=== PATIENT | male | born 1980 | race Caucasian/White ===

== ENCOUNTER 2017-08-14 18:23 | Emergency (ER) | payer BC ==
[2017-08-14 18:35] VITALS: BMI 30.2
--- NOTE | 2017-08-14 20:36 | PDOC ---
History of Present Illness <Tanner Felton - Last Filed: 08/14/17 21:00> - History of Present Illness Initial Comments: 08/14/17 20:31 Mr. Draper is a 37 yo male with a significant past medical history of Esophagitis and Hiatal hernia who presents to the emergency department complaining of a several week history of chest tightness. He says that he had bronchitis a few weeks ago which he self diagnosed, and that he went to see his doctor on Saturday when he started coughing up brown mucous every morning. He was then put on an antibiotic that he does not know the name of. He became worried today when he experienced acute worsening of his chest tightness and says that he felt like "someone was sitting on his chest." He then called his PCP who advised him to present to the ER. He also reports that he has experienced minimal diarrhea since he began his antibiotic. The patient denies headache and dizziness. Denies fever, chills, nausea, vomit, and constipation. Denies dysuria, frequency, urgency and hematuria. Allergies: NKDA Past surgical history: Denies Social history: Smoked 1 ppd for 16 years, quit 1 year ago PMD - Roe Valenzuela <Mike Ramos - Last Filed: 08/16/17 02:58> - General Chief Complaint: Chest Pain Stated Complaint: CHEST TIGHTNESS Time Seen by Provider: 08/14/17 20:31 Past History <Tanner Felton - Last Filed: 08/14/17 21:00> - Past Medical History Other medical history: denies - Immunization History Immunization Up to Date: Yes - Suicide/Smoking/Psychosocial Hx Smoking History: Former smoker Have you smoked in the past 12 months: No Number of Cigarettes Smoked Daily: 20 If you are a former smoker, when did you quit?: 2016 Information on smoking cessation initiated: Yes 'Breaking Loose' booklet given: 08/14/17 Hx Alcohol Use: No Drug/Substance Use Hx: No Substance Use Type: None <Mike Ramos - Last Filed: 08/16/17 02:58> - Past Medical History Allergies/Adverse Reactions: Allergies Allergy/AdvReac Type Severity Reaction Status Date / Time No Known Allergies Allergy Verified 08/14/17 18:30 Home Medications: Ambulatory Orders Naproxen [Naprosyn -] 500 mg PO BID #14 tablet 12/05/15 Methylprednisolone [Medrol Dose Salazar] 4 mg PO ASDIR #21 tablet 08/14/17 Review of Systems - Review of Systems Comments:: 08/14/17 20:32 GENERAL/CONSTITUTIONAL: No fever or chills. No weakness. HEAD, EYES, EARS, NOSE AND THROAT: No change in vision. No ear pain or discharge. No sore throat. CARDIOVASCULAR: +Acute chest tightness today around 4pm with associated shortness of breath RESPIRATORY: No cough, wheezing, or hemoptysis. GASTROINTESTINAL: +Diarrhea since starting ABX saturday. No nausea, vomiting, or constipation. GENITOURINARY: No dysuria, frequency, or change in urination. MUSCULOSKELETAL: No joint or muscle swelling or pain. No neck or back pain. SKIN: No rash NEUROLOGIC: No headache, vertigo, loss of consciousness, or change in strength/ sensation. ENDOCRINE: No increased thirst. No abnormal weight change HEMATOLOGIC/LYMPHATIC: No anemia, easy bleeding, or history of blood clots. ALLERGIC/IMMUNOLOGIC: No hives or skin allergy. 08/14/17 20:57 <Mike Ramos - Last Filed: 08/16/17 02:58> *Physical Exam - Vital Signs Last Vital Signs Temp Pulse Resp BP Pulse Ox 97.5 F L 97 H 18 117/78 99 08/14/17 18:29 08/14/17 18:29 08/14/17 18:29 08/14/17 18:29 08/14/17 18:29 <Tanner Felton - Last Filed: 08/14/17 21:00> - Vital Signs Last Vital Signs Temp Pulse Resp BP Pulse Ox 97.5 F L 97 H 18 117/78 99 08/14/17 18:29 08/14/17 18:29 08/14/17 18:29 08/14/17 18:29 08/14/17 18:29 - Physical Exam Comments: 08/14/17 20:32 GENERAL: Awake, alert, and fully oriented, in no acute distress HEAD: No signs of trauma, normocephalic, atraumatic EYES: PERRLA, EOMI, sclera anicteric, conjunctiva clear ENT: Auricles normal inspection, hearing grossly normal, nares patent, oropharynx clear without exudates. Moist mucosa NECK: Normal ROM, supple, no lymphadenopathy, JVD, or masses LUNGS: No distress, speaks full sentences, clear to auscultation bilaterally HEART: Regular rate and rhythm, normal S1 and S2, no murmurs, rubs or gallops, peripheral pulses normal and equal bilaterally. ABDOMEN: +Midline hiatal hernia noted. Soft, nontender, normoactive bowel sounds. No guarding, no rebound. No masses EXTREMITIES: Normal inspection, Normal range of motion, no edema. No clubbing or cyanosis. NEUROLOGICAL: Cranial nerves II through XII grossly intact. Normal speech, normal gait, no focal sensorimotor deficits SKIN: Warm, Dry, normal turgor, no rashes or lesions noted. <Mike Ramos - Last Filed: 08/16/17 02:58> ED Treatment Course - RADIOLOGY Radiology Studies Ordered: Category Date Time Status CHEST PA & LAT [RAD] Stat Radiology 08/14/17 20:59 Ordered <Tanner Felton - Last Filed: 08/14/17 21:00> - LABORATORY CBC & Chemistry Diagram: 08/14/17 21:00 08/14/17 21:00 <Mike Ramos - Last Filed: 08/16/17 02:58> *DC/Admit/Observation/Transfer <Tanner Felton - Last Filed: 08/14/17 21:00> <Mike Ramos - Last Filed: 08/16/17 02:58> Diagnosis at time of Disposition: Cough Reactive airway disease Qualifiers: Asthma severity: unspecified severity Asthma persistence: unspecified Asthma complication type: uncomplicated Qualified Code(s): J45.909 - Unspecified asthma , uncomplicated; J45.909 - Unspecified asthma, uncomplicated; J45.909 - Unspecified asthma, uncomplicated - Discharge Dispostion Disposition: HOME Condition at time of disposition: Stable - Prescriptions Prescriptions: Methylprednisolone [Medrol Dose Salazar] 4 mg PO ASDIR #21 tablet - Referrals Referrals: Roe Valenzuela MD [Primary Care Provider] - - Patient Instructions Printed Discharge Instructions: DI for Cough -- Adult, DI for Reactive Airway Disease-Adult Additional Instructions: take medication as directed. Follow up with Dr. Valenzuela for pulmonary consultation and continuation of steroids. Return if any problems. Print Language: CHINESE
--- NOTE | 2017-08-14 20:58 | PDOC ---
Attending Attestation - HPI HPI: 08/14/17 21:05 37 yr old male, with significant pmhx of esophagitis and hiatal hernia, who presents to the emergency room complaining of 1 episode of chest pain today and 3 days of productive cough with brown sputum. The patient explains that he has bronchitis often and went to visit his PCP in the office on Saturday, 3 days ago, when he started coughing up brown sputum. He was given an antibiotic and has been compliant with the medications. However, today the patient experienced one episode of chest tightness at 4:00pm that felt like someone was sitting on his chest. He called his PCP and was told to come to the ED immediately. He is not experiencing chest pain at this time. Denies fever, chills, nausea, vomiting. Denies sick contact. Denies recent travel Allergies: NKDA Social Hx: Former tobacco use. (16 pack year history) PCP: Dr. Roe Valenzuela 08/14/17 21:06 <Génesis Ríos - Last Filed: 08/14/17 21:06> - Resident Resident Name: Mike Ramos - ED Attending Attestation I have performed the following: I have examined & evaluated the patient, The case was reviewed & discussed with the resident, I agree w/resident's findings & plan, Exceptions are as noted - Physicial Exam PE: 08/14/17 21:00 *Physical Exam General Appearance: Yes: Appropriately Dressed. No: Apparent Distress, Intoxicated HEENT: positive: EOMI, CHRIS, Normal ENT Inspection, Normal Voice, TMs Normal, Pharynx Normal. negative: Pale Conjunctivae, Photophobia, Scleral Icterus (R), Scleral Icterus (L) Neck: positive: Trachea midline, Normal Thyroid, Supple. negative: Tender, Rigid, Carotid bruit, Stridor, Lymphadenopathy (R), Lymphadenopathy (L), Thyromegaly Respiratory/Chest: positive: Lungs Clear, Normal Breath Sounds. negative: Chest Tender, Respiratory Distress, Accessory Muscle Use, Labored Respiration, RES, Crackles, Rales, Rhonchi, Stridor, Wheezing, Dullness Cardiovascular: positive: Regular Rhythm, Regular Rate, S1, S2. negative: Edema , JVD, Murmur, Bradycardia, Tachycardia Vascular Pulses: Dorsalis-Pedis (R): 2+, Doralis-Pedis (L): 2+ Gastrointestinal/Abdominal: positive: Normal Bowel Sounds, Flat, Soft. negative : Tender, Organomegaly, Pulsatile Mass, Increased Bowel Sounds, Decreased BS, Distended, Guarding, Rebound, Hernia, Hepatomegaly, Spleenomegaly Lymphatic: negative: Adenopathy, Tenderness Musculoskeletal: positive: Normal Inspection. negative: CVA Tenderness, Decreased Range of Motion Extremity: positive: Normal Capillary Refill, Normal Inspection, Normal Range of Motion, Pelvis Stable. negative: Tender, Pedal Edema, Swelling, Erythema Integumentary: positive: Normal Color, Dry, Warm. negative: Cyanotic, Erythema , Jaundice, Rash Neurologic: positive: expert medical writer II-XII NML intact, Fully Oriented, Alert, Normal Mood/ Affect, Motor Strength 5/5. negative: EOM Palsy, Facial Droop, Sensory Deficit - Medical Decision Making 08/14/17 22:50 Pt treated and release and asked to follow up with his pcp for Pulmonary referral <Tanner Felton - Last Filed: 08/14/17 22:51> Discharge Disposition <Tanner Felton - Last Filed: 08/14/17 22:51> - Diagnosis Cough Reactive airway disease Qualifiers: Asthma severity: mild Asthma persistence: unspecified Asthma complication type : uncomplicated - Discharge Dispostion Disposition: HOME Condition at time of disposition: Stable - Prescriptions Prescriptions: Methylprednisolone [Medrol Dose Salazar] 4 mg PO ASDIR #21 tablet - Patient Instructions Printed Discharge Instructions: DI for Cough -- Adult, DI for Reactive Airway Disease-Adult Additional Instructions: take medication as directed. Follow up with Dr. Valenzuela for pulmonary consultation and continuation of steroids. Return if any problems.
[2017-08-14 21:46] LABS: BASOPHIL 0.9 % (0-2.0); EOSINOPHIL 1.6 % (0-4.5); MCH 29.7 pg (25.7-33.7); MEAN CELL VOLUME 87.2 fl (80-96); MEAN PLT VOLUME 7.8 fl (7.5-11.1); PLATELET COUNT 266 K/MM3 (134-434); RDW 13.5 % (11.9-15.9); WHITE BLOOD COUNT 10.7 K/mm3 (4.0-10.0)
[2017-08-14 22:32] LABS: ANION GAP 10 (8-16); CALCIUM 9.1 mg/dL (8.5-10.1); CO2 23 mmol/L (21-32); CREATININE 0.8 mg/dL (0.7-1.3); GLUCOSE,RANDOM 88 mg/dL (74-106); SGPT/ALT 59 U/L (12-78)
[2017-08-14 22:36] LABS: ALK PHOS 64 U/L (45-117); BILIRUBIN,TOTAL 0.4 mg/dL (0.2-1.0); TROPONIN I < 0.02 ng/ml (0.00-0.05)
[2017-08-14 22:37] LABS: CPK 235 IU/L (39-308); SGOT/AST 42 U/L (15-37)
[2017-08-14] MEDS ORDERED: predniSONE 20 MG TABLET (UD) PO ONE (22:47)
[2017-08-14] MEDS ORDERED: predniSONE 20 MG TABLET (UD) ONE (22:56)
[2017-08-14 23:02] VITALS: BP 120/82; PULSE 86; TEMP 98.1
--- NOTE | 2017-08-15 11:54 | EKG ---
Test Reason : Blood Pressure : / mmHG Vent. Rate : 070 BPM Atrial Rate : 070 BPM P-R Int : 138 ms QRS Dur : 072 ms QT Int : 380 ms P-R-T Axes : 032 023 040 degrees QTc Int : 410 ms NORMAL SINUS RHYTHM NORMAL ECG NO PREVIOUS ECGS AVAILABLE Confirmed by TINY DENSON MD ([id number]) on 08/15/2017 11:54:02 AM Referred By: Confirmed By:TINY DENSON MD
== END 2017-08-14 23:00 | disposition home or self-care (01) ==
LOC: JER 18:23
DX: J45.909 Unspecified asthma, uncomplicated (principal); R05 Cough; Z87.891 Personal history of nicotine dependence
CPT/HCPCS: 36415; 71020-TC; 80053; 82550; 82553; 84484; 85025; 93005; 93010; 99282-25